=== PATIENT | female | born 1960 ===

== ENCOUNTER 2025-07-11 11:32 | Outpatient (REF) | payer MEDICAID, SELFPAY ==
--- OUTSIDE RECORDS SUMMARY | 2025-07-11 10:45 | XMS_ITS | Encounter Summary ---
Author Organization [employer] Address [address] [place] [address] [address] [address] Care Team Providers Care Apprentice Plant Attendant Name Role Phone Wenceslao Negro CNP Primary Care Provider [phone] Reason for Referral * Consultation (Routine) - Pending Review Specialty Diagnoses / Procedures Referred By Jude dobbs Referred To Contact Psychiatry Diagnoses Adjustment reaction with anxiety and depression Procedures Referral to Psychiatry Wenceslao Negro CNP [address] [place] [address] Phone: tel: fax: Referral ID Status Reason Start Date Expiration Date Visits Requested Visits Authorized [id number] Pending Review Specialty Services Required 07/11/2025 01/09/2027 1 1 * Consultation (Routine) - Authorized Specialty Diagnoses / Procedures Referred By Jude dobbs Referred To Contact Behavioral Health Diagnoses Adjustment reaction with anxiety and depression Procedures Referral to Behavioral Health Wenceslao Negro CNP [address] [place] [address] Phone: tel: fax: Referral ID Status Reason Start Date Expiration Date Visits Requested Visits Authorized [id number] Authorized Specialty Services Required 07/11/2025 07/11/2026 1 1 * Consultation (Routine) - Pending Review Specialty Diagnoses / Procedures Referred By Jude dobbs Referred To Contact Orthopaedic Surgery Diagnoses Encounter for physical examination Wenceslao Negro CNP [address] [place] [address] Phone: tel: fax: Referral ID Status Reason Start Date Expiration Date Visits Requested Visits Authorized [id number] Pending Review Specialty Services Required 07/11/2025 07/11/2026 1 1 * Consultation (Routine) - Pending Review Specialty Diagnoses / Procedures Referred By Jude dobbs Referred To Contact Audiology Diagnoses Encounter for physical examination Wenceslao Negro CNP [address] [place] [address] Phone: tel: fax: Referral ID Status Reason Start Date Expiration Date Visits Requested Visits Authorized [id number] Pending Review Specialty Services Required 07/11/2025 07/11/2026 1 1 Encounter Details Date Type Department Care Team ([facility] st Contact Info) Description 07/11/2025 10:45 AM EDT Office Visit [facility] [address] [place] [address] Wenceslao Negro CNP [address] [place] [address] Encounter for physical examination (Primary Dx); Primary hypertension; Adjustment reaction with anxiety and depression; Benign paroxysmal positional vertigo, unspecified laterality; Dietary counseling; Exercise counseling; Class 1 obesity due to excess calories with serious comorbidity and body mass index (BMI) of 31.0 to 31.9 in adult Social History Tobacco Use Types Packs/Day Years Used Date Smoking Tobacco: Never Passive Smoke Exposure: Never Smokeless Tobacco: Never Tobacco Cessation:Counseling Given: Not Answered Depression Answer Date Recorded Patient Health Questionnaire-9 Score 11 07/11/2025 Patient Health Questionnaire-9 Score 11 07/11/2025 Last PHQ-9: Questionnaire Data Not on file 1 Housing Stability Answer Date Recorded What is your housing situation today? I have raquel dixon 07/11/[address] you li ve. Do you have problems with any of the following? None of the above 07/11/2025 Food Insecurity Answer Date Recorded Within the past 12 months, y ou worried that your food would run out before you got money to buy more: Never True 07/11/2025 Within the past 12 months,th e food you bought just didn't last and you didn't have enough money to get more: Never True 12/2024 Transportation Answer Date Recorded In the past 12 months, has l ack of transportation kept you from medical appts, meetings, work or from getting things needed for daily living? No 07/11/2025 Utilities Answer Date Recorded In the past 12 months, has t he electric, gas, oil or water company threatened to shut off services in your home? No 07/11/2025 Depression Answer Date Recorded Patient Health Questionnaire-2 Score 3 07/11/2025 Internet Access Answer Date Recorded Internet Access Q1 Yes 07/11/2025 Internet Access Q2 Not on file 07/11/2025 Comments No Sex and Gender Information Value Date Recorded Sex Assigned at Female 07/11/2025 10:41 AM EDT Legal Sex Female 11:29 AM EDT Gender Identity Female 07/11/2025 10:41 AM EDT Sexual Orientation Straight 07/11/2025 10 :41 AM EDT documented as of this encounter Last Filed Vital Signs Vital Sign Reading Time Taken Comments Blood Pressure 114/68 07/11/2025 10:53 AM EDT Pulse 98 07/11/2025 10:53 AM EDT Temperature 36.7 C (98 F) 07/11/2025 10:53 AM EDT Respiratory Rate 10 07/11/2025 10:53 AM EDT Oxygen Saturation 96% 07/11/2025 10:53 AM EDT Inhaled Oxygen Concentration - - Weight 78.5 kg (173 lb) 07/11/2025 10:53 AM EDT Height 157.5 cm (5' 2 ) 07/11/2025 10:53 AM EDT Body Mass Index 31.64 07/11/2025 10:53 AM EDT documented in this encounter Functional Status * Over the past 2 weeks, how often have you been bothered by any of the following problems? Question Answer Date of Assessment Author Patient Health Questionnaire -2 Score 3 07/11/2025 11:33 AM EDT Sa michelle Shipley MA * Little interest or pleasure in doing things Answer Date of Assessment Author Not at all 07/11/2025 11:33 AM EDFifi Handy MA * Feeling down, depressed, or hopeless Answer Date of Assessment Author Nearly every day 07/11/2025 11:33 AM Fifi Colby MA * Trouble falling or staying asleep, or sleeping too much Answer Date of Assessment Author Nearly every day 07/11/2025 11:33 AM Fifi Colby MA * Feeling tired or having little energy Answer Date of Assessment Author More than half the days 07/11/2025 11:33 AM Fifi Still MA * Poor appetite or overeating Answer Date of Assessment Author Nearly every day 07/11/2025 11:33 AM Fifi Colby MA * Feeling bad about yourself - or that you are a failure or have let yourself or your family down Answer Date of Assessment Author Not at all 07/11/2025 11:33 AM Fifi Mcfadden MA * Trouble concentrating on things, such as reading the newspaper or watching television Answer Date of Assessment Author Not at all 07/11/2025 11:33 AM Fifi Mcfadden MA * Moving or speaking so slowly that other people could have noticed? Or the opposite - being so fidgety or restless that you have been moving around a lot more than usual. Answer Date of Assessment Author Not at all 07/11/2025 11:33 AM Fifi Mcfadden MA * Thoughts that you would be better off or hurting yourself in some way Answer Date of Assessment Author Not at all 07/11/2025 11:33 AM Fifi Mcfadden MA * Patient Health Questionnaire-9 Score Answer Date of Assessment Author 11 07/11/2025 11:33 AM Fifi Mcfadden MA * How difficult have these problems made it for you to do your work, take care of things at home, or get along with other people? Answer Date of Assessment Author Not difficult at all 07/11/2025 11:33 AM Fifi Aguirre MA documented as of this encounter Progress Notes * Wenceslao Negro CNP - 07/11/2025 10:45 AM EDT Subjective: Charis Owen is a 64 y.o. female with PH of hypertension, anxiety, BBPVwho presents to the office with her daughter for a new patient visit. PCP unknown. Denies recent, illness, injury, or hospitalization. Interim history: Pt recently relocated from [place] about 1 year ago. Pt seen in ED 11/2024 for elevated BP and REYNOLDS Current concerns: Chronic left knee pain MRI 01/2025 [facility] showed fractured/fragmented patella at the inferior pole including patellar tendon insertion with effect of previous surgical intervention. She is still reporting ongoing knee pain despite surgery. She reports instability and pain over patellar tendon. She is looking to be referred to a specialist today. Problem List[1] Surgical History[2] Family History[3] Social History Living situation: lives with daughter Employment/Education: not currently working Diet/exercise: none at this time Substance use: tobacco smoker, uninterested in NRT at this time, report she is going to try to quiton her own first Sexual activity: denies Contraception: n/a Mental health: Patient Health Questionnaire-9 Score: 11 (07/11/2025 11:33 AM) Patient Health Questionnaire-2 Score: 3 (07/11/2025 11:33 AM) Thoughts that you would be better off or hurting yourself in some way: Not at all (07/11/2025 11:33 AM) No data recorded No LMP recorded. Patient is postmenopausal. Allergies[4] Review of Systems Musculoskeletal: Positive for arthralgias. Psychiatric/Behavioral: The patient is nervous/anxious. Vitals: 07/11/25 1053 BP: 114/68 BP Location: Left arm Patient Position: Sitting BP Cuff Size: Large adult Pulse: 98 Resp: 10 Temp: 98 ??F (36.7 ??C) TempSrc: Oral SpO2: 96% Weight: 173 lb (78.5 kg) Height: 5' 2 (1.575 m) Physical Exam Constitutional: Appearance: Normal appearance. She is normal weight. HENT: Right Ear: Tympanic membrane normal. Left Ear: Tympanic membrane normal. Ears: Comments: Hearing aid present R ear Cardiovascular: Rate and Rhythm: Normal rate and regular rhythm. Pulses: Normal pulses. Heart sounds: Normal heart sounds. No murmur heard. No friction rub. No gallop. Pulmonary: Effort: Pulmonary effort is normal. No respiratory distress. Breath sounds: Normal breath sounds. No wheezing or rales. Neurological: General: No focal deficit present. Mental Status: She is alert and oriented to person, place, and time. Psychiatric: Mood and Affect: Mood normal. Behavior: Behavior normal. Thought Content: Thought content normal. Judgment: Judgment normal. Assessment & Plan Encounter for physical examination 1. Anticipatory guidance discussed. Specific topics reviewed: drugs, ETOH, and tobacco, importance of regular dental care, importance of regular exercise, importance of varied diet, minimize junk food, and sex; STD and prevention as appropriate. 2. Age appropriate screenings discussed. Pt declined colonoscopy and cervical cancer screening. Shealso declined all due vaccinations. She reports her last mammo was normal 12/2024. Records pending I placed vision referral today Pt to make appointment with [facility] dental I referred to audiology for hearing aid adjustment as she reports new changes in hearing loss bilaterally. Routine Screening and Health Maintenance Optometry: Yes but needs f/u Dentist: No BMD: due in 2 years ASCVD risk: 64 y.o. femalehypertension smoker sedentary lifestyle Lab Review: orders written for new lab studies as appropriate; see orders All imms declined by pt today Orders: Albumin, Random Urine W/Creatinine; Future CBC auto differential; Future Comprehensive Metabolic Panel; Future Lipid Panel, Standard; Future HIV-1/2 Antigen and Antibodies, Fourth Generation, with Reflexes; Future Hepatitis C Antibody with Reflex to HCV, RNA, Quantitative, Real-Time PCR; Future Referral to Audiology; Future Referral to Orthopaedic Surgery; Future Primary hypertension BP at goal <130/80 Continue on current meds, complete ordered bloodwork to check renal function Advised low sodium diet and ample hydration] Encouraged smoking cessation Orders: candesartan (Atacand) 16 MG tablet; Take 1 tablet (16 mg) by mouth Once per day. bisoprolol (Zebeta) 5 MG tablet; Take 1 tablet (5 mg) by mouth Once per day. Adjustment reaction with anxiety and depression Stable, no safety concerns at this time Refilled medications Referred to psychiatry and OP psychotherapy Orders: venlafaxine XR (Effexor XR) 75 MG 24 hr tablet; Take 1 tablet (75 mg) by mouth Once per day. ALPRAZolam (Xanax) 0.5 MG tablet; Take 1 tablet (0.5 mg) by mouth 2 times daily. Referral to Behavioral Health; Future Referral to Psychiatry; Future Benign paroxysmal positional vertigo, unspecified laterality Stable, symptoms controlled on meclizine, refilled meds Orders: meclizine (Antivert) 25 MG tablet; Take 1 tablet (25 mg) by mouth if needed in the morning, at noon, and at bedtime for dizziness. Dietary counseling Dietary Recommendations: Fruits, vegetables, whole grains, protein foods, and fat-free or low-fat dairy products are healthychoices. Eat different types of protein foods in your diet. This can include seafood, lean meats, poultry, beans, peas, lentils, nuts, seeds, soy products, and eggs. Limit foods and beverages higher in added sugars, saturated fat, and sodium. Exercise counseling Exercise Recommendations: At least 150 minutes of moderate-intensity physical activity per week, or an equivalent combinationof moderate- and vigorous-intensity activity Class 1 obesity due to excess calories with serious comorbidity and body mass index (BMI) of 31.0 to 31.9 in adult Diet and exercise counseling Current Medications[5] There is no immunization history on file for this patient. Follow up in about 6 months (around 01/09/2026) for f/u chronic conditions. Or sooner prn [1] There is no problem list on file for this patient. [2] Past Surgical History: Procedure Laterality Date CATARACT EXTRACTION W/ INTRAOCULAR LENS IMPLANT Right 04/2025 CHOLECYSTECTOMY removed over 30 years ago [3] No family history on file. [4] Allergies Allergen Reactions Iodine [5] Current Outpatient Medications Medication Sig Dispense Refill ALPRAZolam (Xanax) 0.5 MG tablet Take 1 tablet (0.5 mg) by mouth 2 times daily. 30 tablet 2 bisoprolol (Zebeta) 5 MG tablet Take 1 tablet (5 mg) by mouth Once per day. 30 tablet 2 candesartan (Atacand) 16 MG tablet Take 1 tablet (16 mg) by mouth Once per day. 30 tablet 2 meclizine (Antivert) 25 MG tablet Take 1 tablet (25 mg) by mouth if needed in the morning, at noon,and at bedtime for dizziness. 30 tablet 2 venlafaxine XR (Effexor XR) 75 MG 24 hr tablet Take 1 tablet (75 mg) by mouth Once per day. 30 tablet 2 No current facility-administered medications for this visit. documented in this encounter Plan of Treatment Scheduled Orders Name Type Priority Associated Diagnoses Orde r Schedule Albumin, Random Urine W/Creatinine Lab Routine Encounter for physical examination Expected: 07/11/2025 (Approximate), Expires: 07/11/2026 CBC auto differential Lab Routine Encounter for physical examination Expected: 07/11/2025 (Approximate), Expires: 07/11/2026 Comprehensive Metabolic Panel Lab Routine Encounter for physical examination Expected: 07/11/2025 (Approximate), Expires: 07/11/2026 Lipid Panel, Standard Lab Routine Encounter for physical examination Expected: 07/11/2025 (Approximate), Expires: 07/11/2026 HIV-1/2 Antigen and Antibodies, Fourth Generation, with Reflexes Lab Routine Encounter for physical examination Expected: 07/11/2025 (Approximate), Expires: 07/11/2026 Hepatitis C Antibody with Reflex to HCV, RNA, Quantitative, Real-Time PCR Lab Routine Encounter for physical examination Expected: 07/11/2025, Expires: 07/11/2026 Scheduled Referrals Name Type Priority Associated Diagnoses Orde r Schedule Referral to Audiology Outpatient Referral Routine Encounter for physical examination Expected: 07/11/2025 (Approximate), Expires: 07/11/2026 Referral to Orthopaedic Surgery Outpatient Referral Routine Encounter for physical examination Expected: 07/11/2025 (Approximate), Expires: 07/11/2026 documented as of this encounter Visit Diagnoses Diagnosis Encounter for physical examination- Primary Primary hypertension Unspecified essential hypertension 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 Benign paroxysmal positional vertigo, unspecified laterality Dietary counseling Dietary surveillance and counseling Exercise counseling Class 1 obesity due to excess calories with serious comorbidity and body mass index (BMI) of 31.0 to 31.9 in adult documented in this encounter Additional Health Concerns Assessment Noted Time PHQ-9 Depression Total Score: 11 025 11:33 AM EDT documented as of this encounter Care Teams Apprentice Plant Attendant Relationship Specialty Start Date End Date Wenceslao Negro CNP [address] [place] [id number] PCP - General Family Medicine 07/11/25 documented as of this encounter
--- OUTSIDE RECORDS SUMMARY | 2025-07-11 12:41 | XMS_ITS | Encounter Summary ---
Author Organization [employer] Address [address] [facility] [address] [place] [address] Care Team Providers Care Senior Svp Name Role Phone Wenceslao Negro CNP Primary Care Provider [phone] Encounter Details Date Type Department Care Team (Latest Contact Info) Description 07/11/2025 Travel Social History Tobacco Use Types Packs/Day Years Used Date Smoking Tobacco: Never Passive Smoke Exposure: Never Smokeless Tobacco: Never Depression Answer Date Recorded Patient Health Questionnaire-9 [...] AM EDT documented as of this encounter Functional Status * Over the past 2 weeks, how often have you been bothered by any of the following problems? Question Answer Date of Assessment Author Patient Health Questionnaire -2 Score 3 07/11/2025 11:33 AM EDT Sa michelle Shipley MA * Little interest or pleasure in doing things Answer Date of Assessment Author Not at all 07/11/2025 11:33 AM EDT Fifi Daley MA * Feeling down, depressed, or hopeless Answer Date of Assessment Author Nearly every day 07/11/2025 11:33 AM EDT Fifi Perez MA * Trouble falling or staying asleep, or sleeping too much Answer Date of Assessment Author Nearly every day 07/11/2025 11:33 AM EDT Fifi Perez MA * Feeling tired or having little energy Answer Date of Assessment Author More than half the days 07/11/2025 11:33 AM EDT Fifi Shipley MA * Poor appetite or overeating Answer Date of Assessment Author Nearly every day 07/11/2025 11:33 AM LAURIET Fifi Perez MA * Feeling bad about yourself - or that you are a failure or have let yourself or your family down Answer Date of Assessment Author Not at all 07/11/2025 11:33 AM EDT Fifi Daley MA * Trouble concentrating on things, such as reading the newspaper or watching television Answer Date of Assessment Author Not at all 07/11/2025 11:33 AM EDT Fifi Daley MA * Moving or speaking so slowly that other people could have noticed? Or the opposite - being so fidgety or restless that you have been moving around a lot more than usual. Answer Date of Assessment Author Not at all 07/11/2025 11:33 AM EDFifi Handy MA * Thoughts that you would be better off or hurting yourself in some way Answer Date of Assessment Author Not at all 07/11/2025 11:33 AM EDT Fifi Daley MA * Patient Health Questionnaire-9 Score Answer Date of Assessment Author 11 07/11/2025 11:33 AM EDT Fifi Daley MA * How difficult have these problems made it for you to do your work, take care of things at home, or get along with other people? Answer Date of Assessment Author Not difficult at all 07/11/2025 11:33 AM EDT Fifi Huff MA documented as of this encounter Plan of Treatment Not on file documented as of this encounter Visit Diagnoses Not on filedocumented in this encounter Additional Health Concerns Assessment Noted Time PHQ-9 Depression Total Score: 11 025 11:33 AM EDT documented as of this encounter Care Teams Senior Svp Relationship Specialty Start Date End Date Wenceslao Negro CNP [address] [place] [address] [place] [address] PCP - General Family Medicine 07/11/25 documented as of this encounter
--- OUTSIDE RECORDS SUMMARY | 2025-07-11 12:41 | XMS_ITS | Clinical Summary ---
Author Organization [employer] Address [address] [place] [address] [address] [place] [address] Care Team Providers Care Revenue Analyst Name Role Phone Wenceslao Negro CNP Primary Care Provider [phone] Allergies Active Allergy Reactions Criticality Noted Date Comments Iodine 11/18/2024 Medications venlafaxine XR (Effexor XR) 75 MG 24 hr tabletIndicatio ns:Adjustment reaction with anxiety and depression Take 1 tablet (75 mg) by mouth Once per day. 30 tablet 2 07/11/20 25 Active candesartan (Atacand) 16 MG tabletIndicatio ns:Primary hypertension Take 1 tablet (16 mg) by mouth Once per day. 30 tablet 2 07/11/20 25 Active bisoprolol (Zebeta) 5 MG tabletIndicatio ns:Primary hypertension Take 1 tablet (5 mg) by mouth Once per day. 30 tablet 2 07/11/20 25 Active meclizine (Antivert) 25 MG tabletIndicatio ns:Benign paroxysmal positional vertigo, unspecified laterality Take 1 tablet (25 mg) by mouth if needed in the morning, at noon, and at bedtime for dizziness. 30 tablet 2 07/11/20 25 Active ALPRAZolam (Xanax) 0.5 MG tabletIndicatio ns:Adjustment reaction with anxiety and depression Take 1 tablet (0.5 mg) by mouth 2 times daily. 30 tablet 2 07/11/20 25 Active ALPRAZolam (Xanax) 0.5 MG tablet Take 1 tablet by mouth 2 times daily. 11/18/19 25 025 Discontinued(Re order (will not trigger notification to Pharmacy)) bisoprolol (Zebeta) 5 MG tablet Take 1 tablet by mouth Once per day. 01/13/20 025 Discontinued(Re order (will not trigger notification to Pharmacy)) meclizine (Antivert) 25 MG tablet TAKE 1 TABLET BY MOUTH THREE TIMES DAILY NEEDED FOR DIZZINESS FOR UP TO 10 DAYS 11/18/19 025 Discontinued(Re order (will not trigger notification to Pharmacy)) candesartan (Atacand) 16 MG tablet Take 16 mg by mouth Once per day. 11/18/19 025 Discontinued(Re order (will not trigger notification to Pharmacy)) venlafaxine XR (Effexor XR) 75 MG 24 hr tablet Take 75 mg by mouth Once per day. 11/18/19 025 Discontinued(Re order (will not trigger notification to Pharmacy)) Encounters Date Type Department Care Team Description 07/11/2025 10:45 AM EDT Office Visit [facility] [address] [place] [address] Wenceslao Negro CNP Encounter for physical examination (Primary Dx); Primary hypertension; Adjustment reaction with anxiety and depression; Benign paroxysmal positional vertigo, unspecified laterality; Dietary counseling; Exercise counseling; Class 1 obesity due to excess calories with serious comorbidity and body mass index (BMI) of 31.0 to 31.9 in adult 07/11/2025 Travel 07/10/[address] [id number] MaryFermin Poll[place], [place] chart prep 06/18/[address] [address] Ge Fuller MD 06/17/[address] [address] Ge Fuller MD [facility] - New Patient Assistance from Last 3 Months Social History Tobacco Use Types Packs/Day Years [...] Orientation Straight 07/11/2025 10 :41 AM EDT Last Filed Vital Signs Vital Sign Reading [...] Mass Index 31.64 07/11/2025 10:53 AM EDT Plan of Treatment Health Maintenance Due Date Last Done Comments CT Colonography 1961 Colonoscopy 1961 FIT DNA/Cologuard 1961 FIT 1961 FOBT 1961 HIV Screening 1961 Lipid Panel 1961 Sigmoidoscopy 1961 Hepatitis C Screening 1979 Pap Smear 1982 HPV/Cotest 1991 Mammogram 2001 Depression Monitoring 01/09/2026 07/11/2025 , 07/11/2025 Influenza Vaccine (#1) 2026 Postp oned from 06/09/2025 (Patient Refused) Alcohol/Substance Use Screening 07/11/2026 07/11/2025 COVID-19 Vaccine (1 - 2023-2 5 season) 2026 Postponed from 06/09 (Patient Refused) Cervical Cancer Screening 07/11/2026 Po stponed from 1991 (Patient Refused) Colorectal Cancer Screening 07/11/2026 Postponed from 1961 (Patient Refused) DTaP/Tdap/Td Vaccines (1 - Tdap) 07/11/2026 Postponed from 11/09 (Patient Refused) Disability Screening 07/11/2026 07/11/2025 Pneumococcal Vaccine: 50+ Years (1 of 1 - PCV) 07/11/2026 Postponed from 10/2011 (Patient Refused) SDOH Screening 07/11/2026 07/11/2025 Tobacco Screening 07/11/2026 07/11/2025 Zoster Vaccines (1 of 2) 07/11/2026 Pos tponed from 2011 (Patient Refused) RSV Patients and Patients Aged 60 years or older (1 - 1-dose 75+ series) 2036 HIB Vaccines Aged Out No longer eligi ble based on patient's age to complete this topic HPV Vaccines Aged Out No longer eligi ble based on patient's age to complete this topic Hepatitis A Vaccines Aged Out No long er eligible based on patient's age to complete this topic Hepatitis B Vaccines Aged Out No long er eligible based on patient's age to complete this topic IPV Vaccines Aged Out No longer eligi ble based on patient's age to complete this topic Meningococcal B Vaccine Aged Out No l onger eligible based on patient's age to complete this topic Meningococcal Vaccine Aged Out No [place] fariba eligible based on patient's age to complete this topic RSV under 20 months Aged Out No longe r eligible based on patient's age to complete this topic Rotavirus Vaccines Aged Out No longer eligible based on patient's age to complete this topic Insurance [facility] [employer] Care Teams Revenue Analyst Relationship Specialty Start Date End Date Wenceslao Negro CNP [address] [place] [address] [phone] PCP - General Family Medicine 07/11/25
--- OUTSIDE RECORDS SUMMARY | 2025-07-11 12:41 | XMS_ITS | Clinical Summary ---
Author Organization [facility] Address [address] [place] [phone] Phone Care Team Providers Care Hydroponics Grower Name Role Phone Physician, No Pcp Primary Care Provider Unavaila ble Allergies Active Allergy Reactions Criticality Noted Date Comments Iodine 11/18/2024 Medications bisoprolol (ZEBETA) 5 mg tablet Take 1 tablet (5 mg total) by mouth 1 (one) time each day. 30 tablet 2 11/18/2024 Active candesartan (ATACAND) 16 mg tablet Take 1 tablet (16 mg total) by mouth 1 (one) time each day. 30 each 2 11/18/2024 Active venlafaxine 75 mg 24 hr tablet Take 1 tablet (75 mg total) by mouth 1 (one) time each day. Do not crush, chew, or split. 30 tablet 2 11/18/2024 Active Social History Tobacco Use Types Packs/Day Years Used Date Smoking Tobacco: Never Assessed Comments Unknown Sex and Gender Information Value Date Recorded Sex Assigned at Female 11/18/2024 1:39 PM EST Legal Sex Female 11:04 AM EST Gender Identity Female 11/18/2024 1:39 PM EST Sexual Orientation Not on file Obstetrics History Last Filed Vital Signs Vital Sign Reading Time Taken Comments Blood Pressure 113/65 11/18/2024 2:10 PM EST Pulse 65 11/18/2024 2:10 PM EST Temperature 36.6 C (97.9 F) 11/18/2024 2:10 PM EST Respiratory Rate 18 11/18/2024 2:10 PM EST Oxygen Saturation 94% 11/18/2024 2:10 PM EST Inhaled Oxygen Concentration - - Weight 78 kg (171 lb 15.3 oz) 11/18/2024 11:21 A M EST Height 160 cm (5' 3 ) 11/18/2024 11:21 AM EST Body Mass Index 30.46 11/18/2024 11:21 AM EST Plan of Treatment Health Maintenance Due Date Last Done Comments Breast Cancer Screening 1961 Colorectal Cancer Screening: Colonoscopy 1961 DTaP,Tdap,and Td Vaccines (1 - Tdap) 1980 Cervical Cancer Screening: P ap Smear 1982 Pneumococcal Vaccine: 50+ Ye ars (1 of 1 - PCV) 2011 Zoster Vaccines (1 of 2) 2011 Depression Screening 10/09/2024 HIV Screening 11/19/2024 Hepatitis C Screening 11/19/2024 Social Influencers of Health Screening 11/19/2024 COVID-19 Vaccine (1 - 2023-2 5 season) 2025 Influenza Vaccine (#1) 2025 RSV Immunization Adult Patie nts (1 - 1-dose 75+ series) 2036 HIB [...] on patient's age to complete this topic MMR Vaccines Aged Out No longer eligi ble based on patient's age to complete this topic Meningococcal ACWY Vaccine Aged Out N o longer eligible based on patient's age to complete this topic Meningococcal B Vaccine Aged Out No l onger eligible based on patient's age to complete this topic RSV Immunization Patients Un jasmin 20 months Aged Out No longer eligible b ased on patient's age to complete this topic Varicella Vaccines Aged Out No longer eligible based on patient's age to complete this topic Insurance MEDICAID - [place] Care Teams Hydroponics Grower Relationship Specialty Start Date End Date Physician, No Pcp PCP - General 11/18/24
--- OUTSIDE RECORDS SUMMARY | 2025-07-11 12:41 | XMS_ITS | Encounter Summary ---
Author Organization [employer] Address [address] [facility] [address] [place] [address] Care Team Providers Care Infantry Operations Specialist Name Role Phone Unavailable Primary Care Provider Unavailabl e Reason for Visit * Reason Onset Date Comments chart prep 07/10/2025 Encounter Details Date Type Department Care Team ([facility] st Contact Info) Description 07/10/2025 Telephone [facility] [address] [place] [address] [place], [place] chart prep Social History Tobacco Use Types Packs/Day Years Used Date Smoking Tobacco: Never Assessed Depression Answer Date Recorded Patient Health Questionnaire-9 [...] Access Q2 Not on file 07/11/2025 Comments Unknown Sex and Gender Information Value Date Recorded Sex Assigned at Female 07/11/2025 10:41 AM EDT Legal Sex Female 11:29 AM EDT Gender Identity Female 07/11/2025 10:41 AM EDT Sexual Orientation Straight 07/11/2025 10 :41 AM EDT documented as of this encounter Miscellaneous Notes * Telephone Encounter - Fifi Shipley MA - 07/10/2025 11:25 AM EDT Chart Prep Labs: not applicable Images: not applicable Referrals: not applicable Vaccines due: Covid, Flu, PCV20, and Zoster Screenings: colonoscopy, mammogram, pap smear, STI screening, and LMP Overdue care gaps: SBIRT, SDOH, PHQ-9, FRANCHESKA-7, Oral health screening, Disability screen, and Tobacco documented in this encounter Plan of Treatment Not on file documented as of this encounter Visit Diagnoses Not on filedocumented in this encounter
[2025-07-11 14:13] LABS: MANUAL DIFF FLAG NO
[2025-07-11 14:30] LABS: Hematocrit 42.6 % (37.0-47.0); Hemoglobin 13.8 g/dl (12.0-16.0); Imm Gran Abs Auto 0.02 X10*3/uL (0.00-0.03); Imm Gran Pct Auto 0.2 % (0.0-0.4); Lymphocytes Absolute Auto 2.9 X10*3/uL (1.2-4.9); Mean Corpuscular HGB Conc 32.4 g/dl (31.0-35.0); Mean Corpuscular Hemoglobin 28.2 pg (27.0-33.0); Mean Corpuscular Volume 86.9 fL (80.0-98.0); NRBC Abs Auto 0.000 X10*3/uL (0.0-0.012); NRBC Pct Auto 0.0 /100WBC (0.0-0.2); Platelet Count 361 X10*3/uL (160-400); Red Blood Count 4.90 X10*6/uL (4.20-5.50); White Blood Count 8.3 X10*3/uL (4.8-10.8)
[2025-07-11 15:10] LABS: Alanine Aminotransferase 17 U/L (0-31); Albumin Level 5.0 g/dL (3.5-5.0); Alkaline Phosphatase 51 U/L (39-117); Anion Gap 13 (12-20); Aspartate Amino Transferase 27 U/L (5-31); Blood Urea Nitrogen 22 mg/dL (9-16); Calcium 10.2 mg/dL (8.4-10.2); Carbon Dioxide 29 mmol/L (22-29); Chloride 100 mmol/L (96-108); Cholesterol 196 mg/dL (<200); Estimated Glomerular Filt Rate > 60; HDL Cholesterol 54 mg/dL (>40); Potassium 4.0 mmol/L (3.3-5.1); Sodium 138 mmol/L (135-145); Total Protein 8.1 g/dL (6.5-8.0); Triglycerides 90 mg/dL (<150)
[2025-07-11 15:18] LABS: Microalbum/Creatinine Ratio Ur 12.3 ug/mg cr (<30)
[2025-07-12 04:48] LABS: HIV Num 1 0.05 S/CO (0.00-0.99); ~HepC Num1 0.09 S/CO (0.00-0.79); ~Hepatitis C Antibody Nonreactive (Nonreactive)
== END 2025-07-11 11:33 | disposition home or self-care (01) ==
LOC: HO.CHCLDS 11:32
DX: Z00.00 Encounter for general adult medical examination without abnormal findings (principal); Z11.4 Encounter for screening for human immunodeficiency virus [HIV]; Z11.59 Encounter for screening for other viral diseases
CPT/HCPCS: 36415; 80053; 80061; 82043; 82570; 85025; 86803; 87389